=== PATIENT | male | born 1980 | race Caucasian/White ===

== ENCOUNTER 2017-03-16 14:12 | Inpatient (IN) | payer OTHER ==
[~2017-03-16] VITALS: Ht 165.1 cm; Wt 61.2 kg
--- NOTE | 2017-03-16 15:08 | RADIOLOGY REPORT ---
EXAMINATION: XR KNEE, RIGHT CLINICAL INFORMATION: Right knee pain. COMPARISON: There are no prior studies for comparison. TECHNIQUE: Four views of the right knee. FINDINGS: There is extensive soft tissue swelling within the cutaneous and subcutaneous region of the anterior aspect of the right knee along the superficial aspect of the anterior patellar margin. A small suprapatellar knee joint effusion is noted. No cortical defects are noted throughout the bony structures of the knee. No significant degenerative changes are present. IMPRESSION: Extensive soft tissue swelling in the anterior aspect of the right knee is superficial. A tiny suprapatellar knee joint effusion is present.
[2017-03-16 15:38] LABS: ABSOLUTE BASOPHIL COUNT 0 /CUMM (0.0-0.2); ABSOLUTE EOSINOPHIL COUNT 0.6 /CUMM (0.0-0.7); ABSOLUTE GRANULOCYTE CT 14.9 /CUMM (1.4-6.5); ABSOLUTE LYMPH COUNT 1.2 /CUMM (1.2-3.4); ABSOLUTE MONOCYTE COUNT 1.4 /CUMM (0.10-0.60); BASOPHIL % 0.2 % (0.0-2.0); EOSINOPHIL % 3.4 % (0-5); GRANULOCYTE % 82.3 % (42.2-75.2); HEMATOCRIT 42.4 % (42-52); MEAN CORPUSCULAR HGB 28.2 PG (27.0-31.0); MEAN CORPUSCULAR HGB CONC 33.2 G/DL (33.0-37.0); MEAN CORPUSCULAR VOLUME 84.8 FL (80.0-94.0); MEAN PLATELET VOLUME 7.4 FL (7.4-10.4); PLATELET COUNT 305 /CUMM (130-400); RBC DISTRIBUTION WIDTH 13.2 % (11.5-14.5); WHITE BLOOD CELL COUNT 18.1 /CUMM (4.8-10.8)
--- NOTE | 2017-03-16 17:28 | ED UPPER/LOWER EXTREMITY COMPL ---
See Addendum History of Present Illness General Chief Complaint: Lower Extremity Problems Stated Complaint: SIB MD FOR ?INFECTION IN R KNEE Source: patient Exam Limitations: no limitations Allergies Coded Allergies: NO KNOWN ALLERGIES (03/16/17) Triage Note: STATES HIS DOCTOR THINKS HE HAS AN INFECTION IN HIS RIGHT KNEE. PMD TRIED TO DRAIN IT YESTERDAY AND PLACED HIM ON ANTIBIOTICS AND TOLD HIM TO COME TO ED TODAY SINCE IT HAS DOUBLED IN SIZE Triage Nurses Notes Reviewed? yes Onset: Gradual Duration: day(s): (3) Timing: no prior history Severity: moderate Severity Numbers: 8 Pain/Injury Location: Right: Knee. Method of Injury: unknown Modifying Factors: Improves With: immobilization. Worsens With: movement. HPI: Patient is a 36-year-old male presenting to the emergency Department chief complaint of right knee pain, swelling and redness worsening over the past 3 days. Denies any injury. Positive tactile fevers and chills. No nausea or vomiting. He saw his opal polisher yesterday he tried to tap his right knee and couldn't get anything out. The patient reports that his knee became doubled the size today and the redness spread. Has been using [id number] Tylenol without relief. No history of similar symptoms. Patient reports that he had an ingrown hair on the right knee but THAT WAS about a week or 2 WEEKS ago. (Noreen العراقي) Vital Signs & Intake/Output Vital Signs & Intake/Output Vital Signs Date Time Temp Pulse Resp B/P B/P Pulse O2 O2 Flow FiO2 Mean Ox Delivery Rate 03/16 1831 98.4 71 18 111/60 98 Room Air 03/16 1418 98.7 100 20 122/78 100 Room Air (Carlene HARDING,Alex Meredith) Past History Travel History Traveled to [place] past 21 day No Medical History Any Pertinent Medical History? see below for history Musculoskeletal: PSORIATIC ARTHRITIS Surgical History Surgical History: non-contributory Psychosocial History What is your primary language Azerbaijani Tobacco Use: Quit >30 days ago ETOH Use: denies use Illicit Drug Use: denies illicit drug use Family History Hx Contributory? No (Noreen العراقي) Review of Systems Review of Systems Constitutional: Reports: see HPI, chills, fever. Comments Review of systems: See HPI, All other systems negative. Constitutional, no weight loss HEENT: No visual changes no sore throat no congestion Cardiovascular: No chest pain ,palpitation , orthopnea or ankle swelling Skin, no jaundice Respiratory: No dyspnea cough sputum or hemoptysis GI: No nausea no vomiting : No dysuria No hematuria Muscle skeletal: no back pain, no neck pain, Neurologic: No numbness no confusion Psych: No stress anxiety or depression,. Heme/endocrine: No bruising no bleeding no polyuria or polydipsia Immunology: No splenectomy or history of AIDS (Noreen العراقي) Physical Exam Physical Exam General Appearance: well developed/nourished, no apparent distress, alert, awake , comfortable Comments: Well-developed well-nourished person in no acute distress HEENT: Atraumatic, normocephalic Neck: Normal inspection Back: Nontender Cardiovascular: Regular rate and rhythms no murmurs rubs or gallops, normal JVP Respiratory: No respiratory distress.breath sounds clear to auscultation bilaterally Extremity: Moderate edema noted over the right patella, full range of motion with some discomfort of the right knee. No calf tenderness to palpation bilaterally. Pedal pulses are 2+ bilaterally. Tender to palpation along the medial and lateral aspect of the right patella. Negative ballottement test. Neuro: Alert oriented x3, motor sensory normal Skin: Moderate erythema, blanchable noted of the right patella approximately 10 cm x 10 cm, very warm to palpation. Nonfluctuant. Psych: Mood and affect is normal, memory and judgment is normal. (Noreen العراقي) Progress Differential Diagnosis: cellulitis, contusion, dislocation, gout, septic arthritis, sprain, tendon injury Diagnostic Imaging: Viewed by Me: Radiology Read. Discussed w/RAD: Radiology Read. Radiology Impression: ATIENT: KRZYSZTOF SOSAGERMÁN III PRESENT AGE: 36 PATIENT ACCOUNT NO: [id number] : 78 LOCATION: [facility] ORDERING PHYSICIAN: John STONE SERVICE DATE: 03/16/17 EXAM TYPE: RAD - XRY-KNEE COMPLETE RIGHT EXAMINATION: XR KNEE, RIGHT CLINICAL INFORMATION: Right knee pain. COMPARISON: There are no prior studies for comparison. TECHNIQUE: Four views of the right knee. FINDINGS: There is extensive soft tissue swelling within the cutaneous and subcutaneous region of the anterior aspect of the right knee along the superficial aspect of the anterior patellar margin. A small suprapatellar knee joint effusion is noted. No cortical defects are noted throughout the bony structures of the knee. No significant degenerative changes are present. IMPRESSION: Extensive soft tissue swelling in the anterior aspect of the right knee is superficial. A tiny suprapatellar knee joint effusion is present. DICTATED BY: Kerry Cardoso MD DATE/TIME DICTATED: 03/16/171502 WATER TAXI CAPTAIN:SYED DATE/TIME TRANSCRIBED:03/16/171502 CONFIDENTIAL, DO NOT COPY WITHOUT APPROPRIATE AUTHORIZATION. <Electronically signed in Other Vendor System> SIGNED BY: Kerry Cardoso MD 03/16/17 1505 (Noreen العراقي) Plan of Care: Orders Procedure Date/time Status Regular Diet 03/17 B Active Patient Data 03/16 1840 Active Misc Message 03/16 183 Active ED Holding Orders 03/16 183 Active Admit to inpatient 03/16 1835 Active Vital Signs 03/16 1835 Active Code Status 03/16 1835 Active BLOOD CULTURE 03/16 1739 Active Add-on Test (ER Only) 03/16 1724 Active WESTERGREN SED RATE 03/16 1528 Complete C-REACTIVE PROTEIN 03/16 1528 Complete COMPREHENSIVE METABOLIC PANEL 03/16 1429 Complete CBC WITHOUT DIFFERENTIAL 03/16 1429 Complete Current Medications Sig/Ludivina Start time Last Medication Dose Stop Time Status Admin Morphine Sulfate 4 MG ONCE ONE 03/16 1830 UNVr 03/16 (Morphine) 03/16 1831 1837 Sodium Chloride 1,000 ML BOLUS ONE 03/16 1745 AC 03/16 (Normal Saline 0.9%) 03/16 1944 1751 Laboratory Tests 03/16/17 1528: Anion Gap 12, Estimated GFR > 60, BUN/Creatinine Ratio 21.3, Glucose 101 H, Calcium 9.2, Total Bilirubin 1.4 H, AST 18, ALT 32, Alkaline Phosphatase 64, C- Reactive Prot, Quant 4.9 H, Total Protein 6.9, Albumin 3.9, Globulin 3.0, Albumin/Globulin Ratio 1.3, CBC w Diff MAN DIFF ORDERED, RBC 5.00, MCV 84.8, MCH 28.2, RDW 13.2, MPV 7.4, Gran % 82.3 H, Lymphocytes % 6.4 L, Monocytes % 7.7, Eosinophils % 3.4, Basophils % 0.2, Absolute Granulocytes 14.9 H, Absolute Lymphocytes 1.2, Absolute Monocytes 1.4 H, Absolute Eosinophils 0.6, Absolute Basophils 0, Platelet Estimate VERIFIED BY SMEAR, Normocytic RBCs VERIFIED, Normochromic RBCs VERIFIED, PUBS MCHC 33.2, ESR Westergren 23 H Microbiology 03/16 181 BLOOD: Blood Culture - RECD 03/16 1803 BLOOD: Blood Culture - RECD Comments: 03/16/2017 6:32:35 PM I discussed this patient's case with the hospitalist. (Carlene HARDING,Alex Meredith) Departure Departure Time of Disposition: 1847 Disposition: STILL A PATIENT Condition: Stable Clinical Impression Primary Impression: Cellulitis Qualifiers: Site of cellulitis: extremity Site of cellulitis of extremity: lower extremity Laterality: right Qualified Code: L03.115 - Cellulitis of right lower limb Referrals: Alex Rdz MD (PCP/Family) Departure Forms: Customer Survey General Discharge Information Admission Note Spoke With: Makenna Spear MD Documentation of Exam: Documentation of any treatments & extenuating circumstances including Concerns Regarding Discharge (functional status, medication knowledge or non-compliance, living conditions, etc.) that warrant an admission rather than observation: Patient requiring IV antibiotics, may need orthopedic consultation, IV pain medication and anti-inflammatories, discharge at this time is likely harmful secondary to patient being on by mouth antibiotics and symptoms worsening. TrREND white count. (Noreen العراقي) PA/PLASTICS FABRICATION SUPERVISOR Co-Sign Statement Statement: ED Attending supervision documentation- [x] I saw and evaluated the patient. I have also reviewed all the pertinent lab results and diagnostic results. I agree with the findings and the plan of care as documented in the PA's/PLASTICS FABRICATION SUPERVISOR's documentation. Patient presented for evaluation of worsening redness and swelling of the right knee that began gradually over the past 48 hours. Physical examination reveals redness and swelling over the anterolateral aspect of the right knee. [] I have reviewed the ED Record and agree with the PA's/PLASTICS FABRICATION SUPERVISOR's documentation. [] Additions or exceptions (if any) to the PAs/PLASTICS FABRICATION SUPERVISOR's note and plan are summarized below: [] (Carlene HARDING,Alex Meredith)
--- NOTE | 2017-03-16 20:00 | History & Physical ---
Tay HARDING,Jossie 03/16/171955: General Information and HPI MD Statement: I have seen and personally examined NGUYỄN SOSA III and documented this H&P. The patient is a 36 year old M who presented with a patient stated chief complaint of [R knee pain]. Source of Information: patient Exam Limitations: no limitations History of Present Illness: Patient is 36-year-old male with past medical history of psoriatic arthritis diagnosed 15 years ago. He presented to [facility] ED on 03/16 with complaint of right knee pain. The patient was in usual state of health until 2 days ago when he started experiencing pain in his right knee. Patient visited his consumer attorney (Dr. Rodolfo Ramirez at [facility]) who tried to tap joint yesterday. He was not able to draw any fluid out. Patient was prescribed Augmentin after that he has taken 3 pills since yesterday. Patient says that ever since then has joint has worsened in swelling and has become doubled in size. He reports spreading erythema and tenderness. His range of motion is restricted secondary to the pain. On review of system patient reports feeling warm no chills. He reports tenderness and stiffness in his small joints of fingers early in the morning. He denies any trauma to the knee. Denies any tick bite. He is sexually active with only 1 partner for the past 3 years. Denies any urinary symptoms or any ophthalmological symptoms. No history of STDs. Allergies/Medications Allergies: Coded Allergies: NO KNOWN ALLERGIES (03/16/17) Past History Travel History Traveled to [place] past 21 day No Medical History Musculoskeletal: PSORIATIC ARTHRITIS Surgical History Surgical History: cortisol inj R shoulder Past Family/Social History Psychosocial History Where do you live? Home Who Do You Live With? child, girlfriend Services at Home: None Primary Language: Maltese Smoking Status: Former Smoker ETOH Use: denies use Illicit Drug Use: denies illicit drug use Functional Ability ADLs Independent: dressing, eating, toileting, bathing. Ambulation: independent Sexual History Sexually Active Yes # of partners 1 Employment History Employment Employed Profession/[employer] Review of Systems Review of Systems Constitutional: Reports: fever. Denies: chills, weakness. EENTM: Denies: blurred vision, double vision, visual changes, eye pain, eye drainage, eye tearing. Cardiovascular: Reports: no symptoms. Respiratory: Reports: no symptoms. GI: Reports: no symptoms. Genitourinary: Denies: discharge, dysuria, frequency, hematuria, hesitation, nocturia, pain, urgency. Musculoskeletal: Reports: joint pain, joint swelling. Skin: Reports: no symptoms. Exam & Diagnostic Data Last 24 Hrs of Vital Signs/I&O Vital Signs Date Time Temp Pulse Resp B/P B/P Pulse O2 O2 Flow FiO2 Mean Ox Delivery Rate 03/16 2040 97.5 69 18 114/57 96 Room Air 03/16 1831 98.4 71 18 111/60 98 Room Air 03/16 1418 98.7 100 20 122/78 100 Room Air Intake & Output 03/16 1600 03/16 0800 03/16 0000 Intake Total Output Total Balance Patient 135 lb Weight Weight Reported by Patient Measurement Method Physical Exam General Appearance Alert, Oriented X3, Cooperative, No Acute Distress Skin No Rashes, No Breakdown HEENT Atraumatic, PERRLA, Mucous Membr. moist/pink Neck Supple Lymphatic Cervical nl Cardiovascular Regular Rate, Normal S1, Normal S2, No Murmurs Lungs Clear to Auscultation, Normal Air Movement Abdomen Normal Bowel Sounds, Soft, No Tenderness, No Hepatospenomegaly, No Masses Neurological Normal Speech, Normal Tone Extremities R knee joint tender to touch most tender at later side and patella edematous, erythematous and warm. Ristricted ROM 2/2 to pain Vascular Normal Pulses Body Front and Back (Adult) 1) Diagnostic Data Other Results R knee xray IMPRESSION: Extensive soft tissue swelling in the anterior aspect of the right knee is superficial. A tiny suprapatellar knee joint effusion is present. Assessment/Plan Assessment: Patient is 36-year-old male with past medical history of psoriatic arthritis diagnosed 15 years ago. He presented to [facility] ED on 03/16 with complaint of right knee pain. -VS HR 100 Rest WNL -Pertinent labs WBC count 18.1 ESR 23 CRP 4.9 total bilirubin 1.4 -In ED patient received Tylenol 4 mg of morphine ketorolac and 1 L of normal saline and blood cultures were grown. The patient is being admitted to general medicine floor and is being treated and evaluated for following conditions #Bursitis vs cellulitis The patient is presenting with acute onset right knee pain, erythema, edema and tenderness with full range of motion, motion is restricted secondary to pain. Iatrogenic Septic arthritis is also out of the differentials less likely considering tiny suprapatellar effusion. More consistent with bursitis. SIRS criteria positive for elevated heart rate and increased WBC count but, EDC the patient does not appear to be septic. He scores 0 on qSOFA, making him low risk for poor outcome. -Monitor fever and WBC curve -Cefazolin every 8h -Pain management -patient is taking oxycodone 10 mg Q6 and morphine sulfate ER 15mg once daily prescribed by his consumer attorney. We will check CTPM to confirm -Orthopedic consult in the morning #History of psoriatic arthritis: Continue Leflunomide Patient is on Humira every 2 weeks #FC/due to prophylaxis with Lovenox/regular diet As Ranked By This Provider Problem List: 1. Bursitis Core Measures/Misc (11/08) Acute Coronary Syndrome ACS Diagnosis: No Congestive Heart Failure Congestive Heart Failure Diagnosis No Cerebrovascular Accident CVA/TIA Diagnosis: No VTE (View Protocol) VTE Risk Factors Immobility No Mechanical VTE Prophylaxis d/t N/A MechProphylax Ordered No VTE Pharm Prophylaxis d/t NA PharmProphylax ordered Sepsis (View protocol) Sepsis Present: No Thien Mills 03/16/176: General Information and HPI Allergies/Medications Home Med list Adalimumab (Humira Pen) 40 MG/0.8 ML PEN.IJ.KIT 1 SYR SC Q2W PSORIASIS ( Reported) Leflunomide (Arava) 20 MG TABLET 1 TAB PO DAILY PSORIASIS (Reported) Morphine Sulfate (Morphine Sulfate ER) 15 MG TABLET.ER 1 TAB PO DAILY NEEDED PRN JOINT PAINS (Reported) Oxycodone HCl 10 MG TABLET 1 TAB PO 4XDP PRN JOINT PAINS (Reported) Pantoprazole Sodium 40 MG TABLET.DR 1 TAB PO DAILY PRN GERD (Reported) Resident Review Statement Resident Statement: discussed with kinesiology internship Other Findings: 36-year-old man with past medical history of psoriatic arthritis on Humira and Leflunomide follows consumer attorney at [facility]. He presented to [facility] ER with complaint of right knee swelling and redness and pain that started 2 days ago. He saw his consumer attorney yesterday who tried to tap his right knee but could not get any synovial fluid. He prescribed him Augmentin for possible knee infection. He reports having worsening of knee pain and thinks that swelling has increased. Range of motion is restricted due to knee pain. He reports tactile fevers. Other ROS negative. Describes no trauma to his right knee. He denies pain, redness or swelling of any other joint of his body. No rash. No history of tick bite. He is sexually active with 1 partner for last 8 years. Denies having STDs in past. Denies smoking, alcohol or illicit drug use. Upon arrival his temperature was 98.7, pulse 100, respiratory rate 20, blood pressure 122/78 and oxygen saturation 100% on room air. Pertinent physical exam findings: Right knee is erythematous and swollen. Warm and tender to touch. No skin breakdown noted. Range of motion of right knee is normal but restricted due to pain. Pertinent labs: WBC count 18.1, T bili 1.4, ESR 23 and CRP 4.9 Right knee x-ray showed extensive soft tissue swelling in the anterior aspect of right knee. Tiny suprapatellar knee joint effusion. In ER he was given Toradol, 1 L normal saline bolus, morphine and Tylenol. Assessment and plan 36-year-old man with past medical history of psoriatic arthritis. His right knee redness pain and swelling is likely due to superficial cellulitis vs bursitis. Sudden onset of pain also raises the possibility of Gout. No joint effusion was noted on x-ray. Septic Arthritis less likely. We will admit him on general medicine floor. Vitals every shift. We'll start him on cefazolin. Ortho consult in a.m. will check uric acid. Pain management. DVT prophylaxis. Full code Makenna Spear 03/16/17 2357: Attending MD Review Statement Attending Statement Attending MD Statement: examined this patient, discuss w/resident/PA/SOCIAL SERVICE LIAISON, agreed w/resident/PA/SOCIAL SERVICE LIAISON, reviewed EMR data (avail), reviewed images, amended to note Attending Assessment/Plan: CC: Right knee pain PMH: Psoriatic arthritis Patient came to ER for persistent right knee pain. Patient noticed to have pain and redness approximately 3 days back, which gradually worsened. He visited his consumer attorney who tried to aspirate the knee without success, prescribed pain medications and antibiotics. With 1 day of oral antibiotics his knee swelling was not getting better in fact it was getting worse, along with the redness and pain. Patient denies any fever or chills at home, no local trauma. He is unable to ambulate because of pain. Vitals: T max 98.7, pulse 100, RR 20, blood pressure 122/78, saturating well on room air. On exam: A O 3, cooperative, no acute distress, neck supple, JVD normal, no lymphadenopathy, mucosa moist, no focal neurological deficit, no dependent edema , no obvious skin rashes or inflammation CVS: S1-S2, RRR. RS: Clear to auscultate bilaterally. Abdomen: Soft, NT, ND, bowel sounds present. Right knee: Tenderness, swelling, redness on knee, ROM of knee intact, no effusion noted, pulses intact, no open wounds Labs: WBC 10.1, neutrophils 82% otherwise CBC, BMP, LFT unremarkable, CRP 4.9, ESR 23 X-ray right knee: Extensive soft tissue swelling in the anterior aspect of the right knee is superficial. A tiny suprapatellar knee joint effusion is present. 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 Patient underwent tapping of the right knee joint in his consumer attorney office outpatient without success. He is under treatment with antibiotics and pain medications for the same, but over last 1 day the symptoms were worsening so patient came to ER. Patient's range of motion of right knee is intact, no obvious effusion noted but there appears to be prepatellar septic bursitis with warmth, redness, increased temperature, leukocytosis. We will continue IV antibiotics and obtain orthopedic consult. + Right knee suspected prepatellar septic bursitis + History of psoriatic arthritis - Admit to general medicine - Adequate pain control - IV cefazolin - Orthopedic consult - DVT prophylaxis
[2017-03-16] MEDS ORDERED: MORPHINE SULFAT15 M3 PO (20:42)
[2017-03-16] MEDS ORDERED: HUMIRA PEN40 MG/0.8 SC (20:43)
[2017-03-16] MEDS ORDERED: OXYCODONE HCL10 M2 PO (20:43)
[2017-03-16] MEDS ORDERED: PANTOPRAZOLE SO40 M1 PO (20:44)
[2017-03-16] MEDS ORDERED: ARAVA20 M1 PO (20:44)
[2017-03-16 22:32] VITALS: BP 102/56
--- NOTE | 2017-03-16 23:59 | Admission Certification ---
Admission Certification Certification Statement - As attending physician, I certify that at the time of - admission, based on clinical presentation, severity of - symptoms, need for further diagnostic testing and - therapeutic interventions, and risk of adverse outcomes - without in-hospital treatment, in my clinical assessment, - this patient requires an acute hospital stay for a minimum - of two nights or longer. I have also considered psychsocial - factors such as support system, advanced age, financial - issues, cognitive issues, and failed out-patient treatments, - past re-admission history, safety of patient, and lack of - compliance as applicable. Specific rationale supporting this admission is: suspected septic bursitis
[2017-03-17 06:00] VITALS: BP 108/64
[2017-03-17 09:07] LABS: ABSOLUTE BASOPHIL COUNT 0 /CUMM (0.0-0.2); ABSOLUTE EOSINOPHIL COUNT 0.7 /CUMM (0.0-0.7); ABSOLUTE GRANULOCYTE CT 12.6 /CUMM (1.4-6.5); ABSOLUTE LYMPH COUNT 1.2 /CUMM (1.2-3.4); ABSOLUTE MONOCYTE COUNT 1.3 /CUMM (0.10-0.60); BASOPHIL % 0.1 % (0.0-2.0); EOSINOPHIL % 4.5 % (0-5); GRANULOCYTE % 79.9 % (42.2-75.2); MEAN CORPUSCULAR HGB 28.9 PG (27.0-31.0); MEAN CORPUSCULAR HGB CONC 34.1 G/DL (33.0-37.0); MEAN CORPUSCULAR VOLUME 84.7 FL (80.0-94.0); MEAN PLATELET VOLUME 7.9 FL (7.4-10.4); PLATELET COUNT 281 /CUMM (130-400); RBC DISTRIBUTION WIDTH 13.1 % (11.5-14.5); RED BLOOD CELL CT 4.34 /CUMM (4.70-6.10); WHITE BLOOD CELL COUNT 15.8 /CUMM (4.8-10.8)
[2017-03-17 09:28] LABS: HEMATOCRIT 36.8 % (42-52)
--- NOTE | 2017-03-17 09:49 | Cons- Orthopedic ---
General Information and HPI Consulting Request Date of Consult: 03/17/17 Requested By: Winston Barber MD History of Present Illness: 36 YR OLD MALE WITH RIGHT KNEE PAIN AND SWELLING. STATES HAD INGROWN HAIR ON RIGHT KNEE A FEW DAYS AGO. PATIENT IS ON BIOLOGICS MEDS FOR HIS PSORIATIC ARTHRITIS. PATIENT ALSO ON CHRONIC PAIN MEDS. X-RAYS OF KNEE SHOW PREPATELLAR EFFUSION. STATES HIS KNEE PAIN HAS INCREASED OVER HIS ADMISSION. NOW HAS WBC OF 15.3. PATIENT STATES WORKS ON KNEES ALL DAY. Allergies/Medications Allergies: Coded Allergies: NO KNOWN ALLERGIES (03/16/17) Home Med List: Adalimumab (Humira Pen) 40 MG/0.8 ML PEN.IJ.KIT 1 SYR SC Q2W PSORIASIS ( Reported) Leflunomide (Arava) 20 MG TABLET 1 TAB PO DAILY PSORIASIS (Reported) Morphine Sulfate (Morphine Sulfate ER) 15 MG TABLET.ER 1 TAB PO DAILY NEEDED PRN JOINT PAINS (Reported) Oxycodone HCl 10 MG TABLET 1 TAB PO 4XDP PRN JOINT PAINS (Reported) Pantoprazole Sodium 40 MG TABLET.DR 1 TAB PO DAILY PRN GERD (Reported) Past History Medical History Blood Transfusion Hx: No Neurological: NONE EENT: NONE Cardiovascular: NONE Respiratory: NONE Gastrointestinal: NONE Hepatic: NONE Renal: NONE Musculoskeletal: PSORIATIC ARTHRITIS Psychiatric: NONE Endocrine: NONE Blood Disorders: NONE Cancer(s): NONE 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 Home Who Do You Live With? child, girlfriend Services at Home: None Primary Language: Montenegrin Smoking Status: Former Smoker ETOH Use: denies use Illicit Drug Use: denies illicit drug use Functional Ability ADLs Independent: dressing, eating, toileting, bathing. Ambulation: independent Employment History Employment: Employed Profession/Employer: [employer] Review of Systems Review of Systems: SEE CHART Exam & Diagnostic Data Vital Signs and I&O Vital Signs Date Time Temp Pulse Resp B/P B/P Pulse O2 O2 Flow FiO2 Mean Ox Delivery Rate 03/17 0600 98.0 77 18 108/64 96 Room Air 03/16 2232 98.2 70 18 102/56 95 Room Air 03/16 2041 97.5 69 18 114/57 96 Room Air 03/16 1831 98.4 71 18 111/60 98 Room Air 03/16 1418 98.7 100 20 122/78 100 Room Air Intake & Output 03/17 1600 03/17 0800 03/17 0000 03/16 1600 03/16 0800 03/16 0000 Intake Total 200 300 Output Total Balance 200 300 Intake, Oral 200 300 Patient 135 lb 135 lb Weight Weight Reported by Patient Reported by Patient Measurement Method Physical Exam: Noe and serosanguineous. Problem chronic pain. Immunocompromise as VERY TENDER OVER RIGHT PREPATELLAR BURSA. + ERYTHEMA AND SWELLING OF PREPATELLAR BURSA WITH WARMTH. THERE IS SOME FLUCTUANCE OVER PREPATELLAR BURSA. SMALL AREA WHERE THERE WAS AN INGROWN HAIR. FULL ROM OF RIGHT KNEE NO EFFUSION OF RIGHT KNEE. NO INSTABILITY OF KNEE. X-RAYS SHOW PREPATELLAR SWELLING NO FRACTURE OR CALCIFICATIONS. AFTER PREPPING RIGHT KNEE TODAY THE PREPATELLAR BURSA WAS LANCED WITH AN 11 BLADE. SEROSANGUINOUS DRAINAGE WAS OBSERVED AND DRESSING WAS APPLIED. Assessment/Plan Assessment/Plan RIGHT KNEE SEPTIC PREPATELLAR BURSITIS -PATIENT SHOULD BE PLACED ON IV ABX AND I&D CONSULT -ICE TO RIGHT KNEE -PATIENT SHOULD BE PLACED ON HIS REGULAR PAIN MEDS AND SOMETHING FOR BREAK THROUGH PAIN -CHANGE DSG DAILY AND ALLOW BURSA TO DRAIN -F/U WITH ORTHO PRN Consult Acknowledgment - Thank you for your consult request.
--- NOTE | 2017-03-17 11:26 | PN- Housestaff ---
[facility]: Subjective Follow-up For: Septic prepatellar bursitis Subjective: No overnight events. Patient remained afebrile overnight. Seen and examined this morning. Patient denied any chest pain, short of breath, nausea, vomiting, abdominal pain, lightheadedness dysuria. He reported having pain in right knee 7/10. Patient wants to go home today. He said he can follow orthopedic as outpatient and he can manage his wound care. Review of Systems Constitutional: Reports: no symptoms. EENTM: Reports: no symptoms. Cardiovascular: Reports: no symptoms. Respiratory: Reports: no symptoms. Gastrointestinal: Reports: no symptoms. Genitourinary: Reports: no symptoms. Musculoskeletal: Reports: see HPI. Neurological/Psychological: Reports: no symptoms. Objective Last 24 Hrs of Vital Signs/I&O Vital Signs Date Time Temp Pulse Resp B/P B/P Pulse O2 O2 Flow FiO2 Mean Ox Delivery Rate 03/17 0600 98.0 77 18 108/64 96 Room Air 03/16 2232 98.2 70 18 102/56 95 Room Air 03/16 2041 97.5 69 18 114/57 96 Room Air 03/16 1831 98.4 71 18 111/60 98 Room Air 03/16 1418 98.7 100 20 122/78 100 Room Air Intake & Output 03/17 1600 03/17 0800 03/17 0000 Intake Total 200 300 Output Total Balance 200 300 Intake, Oral 200 300 Patient 135 lb Weight Weight Reported by Patient Measurement Method Physical Exam General Appearance: Alert, Oriented X3, Cooperative, No Acute Distress Skin Temp/Moisture Exam: Warm/Dry Sepsis Skin Exam (color): Normal for Ethnicity HEENT: Atraumatic, PERRLA, EOMI Neck: Supple Cardiovascular: Normal S1, Normal S2 Lungs: Clear to Auscultation Abdomen: Soft, No Tenderness Neurological: Normal Speech, Strength at 5/5 X4 Ext, Normal Tone, Sensation Intact Extremities: No Edema Assessment/Plan Assessment: 36-year-old man with past medical history of psoriatic arthritis on Humira and Leflunomide follows survey interviewer at [facility]. He presented to [facility] with complaint of right knee swelling and redness and pain that started 2 days ago. He saw his survey interviewer yesterday who tried to tap his right knee but could not get any synovial fluid. He prescribed him Augmentin for possible knee infection. He reports having worsening of knee pain and thinks that swelling has increased. Range of motion is restricted due to knee pain. We will admit the patient under medicine floor for bursitis treatment. Septic prepatellar bursitis status post I&D: -We will continue IV cefazolin. -Pain medication -Elevation of the leg to decrease swelling -We'll follow the orthopedic recommendation. Incision and drainage is done and they kept it open for open drainage. -We will get the culture. History of psoriatic arthritis: -Continue leflunomide and Humira. DVT prophylaxis: Mechanical and heparin CODE STATUS: Full code Problem List: 1. Bursitis Pain Ratin Pain Location: right knee Pain Goal: Pain 4 or less Pain Plan: oxycodone for moderate pain Tomorrow's Labs & Rationales: cbc/bep Johnathan Negro MD 03/17/17 1702: Attending MD Review Statement Attending Statement Attending MD Statement: examined this patient, discuss w/resident/PA/ENDLESS TRACK VEHICLE MECHANIC, agreed w/resident/PA/ENDLESS TRACK VEHICLE MECHANIC, reviewed EMR data (avail), discussed with case mgmt, amended to note Attending Assessment/Plan: The patient was seen and discussed with house staff. S/P drainage of serosanguineous fluid from pre-patellar bursitis by orthopedic PA. No culture was done. The patient is afebrile and wishes to be discharged. He is followed by his PCP and Traffic Analysis Technician in [place]. [place] to discharge today on po Augmentin with close follow-up as above. The patient was advised to return if any fever or worsening of symptoms. Note- PA did not observe any purulence at time of drainage (only serosanguineous fluid). His last Ab treatment was 1 week ago ( receives q2 weeks).
[2017-03-17] MEDS ORDERED: AUGMENTIN 875-1 EACH PO (13:25)
--- NOTE | 2017-03-17 13:33 | Patient Discharge Instructions ---
Discharge Instructions General Discharge Information You were seen/treated for: Septic prepatellar bursitis Watch for these problems: Increase in pain, increasing redness of right knee, fever, chills, increase in discharged from right knee and lightheadedness. If you experience any of these symptoms come to ED or call your primary care physician. Special Instructions: Please follow up with your primary care physician in one week. Follow-up your association executive in 1 week. If you have fever or increasing swelling or increasing redness and then come back to ED. Take your medications regularly. Dry dressing every day kyleigh wrap. Diet Recommended Diet: Regular Activity Activity Self Limited: Yes Acute Coronary Syndrome Inclusion Criteria At DC or during hospital stay patient has or had the following: ACS DIAGNOSIS No Discharge Core Measures Meds if any: Prescribed or Continued at Discharge Meds if any: NOT Prescribed or Continued at Discharge Congestive Heart Failure Inclusion Criteria At DC or during hospital stay patient has or had the following: CHF DIAGNOSIS No Discharge Core Measures Meds if any: Prescribed or Continued at Discharge Meds if any: NOT Prescribed or Continued at Discharge Cerebrovascular accident Inclusion Criteria At DC or during hospital stay patient has or had the following: CVA/TIA Diagnosis No Discharge Core Measures Meds if any: Prescribed or Continued at Discharge Meds if any: NOT Prescribed or Continued at Discharge Venous thromboembolism Inclusion Criteria VTE Diagnosis No VTE Type NONE VTE Confirmed by (Test) NONE Discharge Core Measures - Per Current guidelines, there needs to be overlap - treatment for the first 5 days of Warfarin therapy. - If discharged on Warfarin prior to 5 days of - overlap therapy, the patient will need to be - assessed for post discharge needs including - *Post discharge parental anticoagulation - *Warfarin and/or parental anticoagulation education - *Follow up date to check INR post discharge At least 5 days overlap therapy as Inpatient No Meds if any: Prescribed or Continued at Discharge Note: Overlap Therapy is Warfarin and Anticoagulant Meds if any: NOT Prescribed or Continued at Discharge
--- NOTE | 2017-03-17 13:34 | Discharge Summary ---
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 He presented to [facility] with complaint of right knee swelling and redness and pain that started 2 days ago. He saw his supervisor stage carpentry yesterday who tried to tap his right knee but could not get any synovial fluid. He prescribed him Augmentin for possible knee infection. He reports having worsening of knee pain and thinks that swelling has increased. Range of motion is restricted due to knee pain. ED course: vitals: Temperature 98.7, pulse 100, respiratory rate 20, BP 122/78, oxygen saturation 98% on room air. Labs: WBC count 18.1, hemoglobin 14.1, hematocrit 42.4, platelet count 305, sodium 141, potassium 4.3, BUN 17, creatinine 0.8, glucose 101, BUNs/creatinine ratio 21.3, total bilirubin 1.4, AST 18, ALT 32, alkaline phosphatase 64. Septic prepatellar bursitis status post I&D: Patient was admitted with right knee swelling and redness and pain due to septic prepatellar bursitis. Blood cultures were obtained and patient was started on IV cefazolin. IV pain medication was given to control the pain. Orthopedic consultation was obtained. Incision and drainage was done and the wound was kept open for open drainage. Dressing was done and patient was instructed for leg elevation. Patient insisted to go home because he was saying that he can take care of his wound and take medications at home. Patient was discharged and instructed to take Augmentin for 10 days with daily dressing. Patient was also instructed to follow his primary care physician and supervisor stage carpentry within a week. Patient was also instructed that if he experience fever, increase in swelling and increasing pain in right knee come back to ED. History of psoriatic arthritis: We continue leflunomide and Humira. DVT prophylaxis: Mechanical and heparin CODE STATUS: Full code Allergies: Coded Allergies: NO KNOWN ALLERGIES (03/16/17) Disposition Summary Disposition Principal Diagnosis: Right Septic prepatellar bursitis Additional Diagnosis: Psoriatic arthritis Discharge Disposition: home or self care Discharge Instructions General Discharge Information Code Status: Full Code Patient's Diet: Regular diet Patient's Activity: Self-limited Follow-Up Instructions/Appts: Follow-up with your primary care physician in one week. Follow-up with your rheumatology in 1 week. If you have increasing pain in her right knee, fever, increase in swelling and increasing redness and then come back to ED. Daily dry dressing with wrap. Medications at Discharge Discharge Medications: Continue taking these medications: Morphine Sulfate (Morphine Sulfate ER) 15 MG TABLET.ER 1 Tablet ORAL DAILY NEEDED as needed for JOINT PAINS Qty = 30 Comments: LAST TAKEN: 03/17/17 @ 10 AM Adalimumab (Humira Pen) 40 MG/0.8 ML PEN.IJ.KIT 1 Syringe Inject into fatty tissue EVERY 2 WEEKS Qty = 2 Comments: NOT TAKEN IN HOSPITAL Oxycodone HCl (Oxycodone HCl) 10 MG TABLET 1 Tablet ORAL 4 times daily as needed as needed for JOINT PAINS Qty = 120 Comments: LAST TAKEN: 03/17/17 @ 10 AM Pantoprazole Sodium (Pantoprazole Sodium) 40 MG TABLET.DR 1 Tablet ORAL DAILY as needed for GERD Qty = 30 Comments: NOT TAKEN IN HOSPITAL Leflunomide (Arava) 20 MG TABLET 1 Tablet ORAL DAILY Qty = 30 Comments: LAST TAKEN: 03/17/17 @ 10 AM Start taking the following new medications: Amoxicillin/Potassium Clav (Augmentin 875-125 Tablet) 875 MG-125 MG TABLET 1 Tablet ORAL TWICE DAILY Qty = 20 No Refills Copies To: Kajal HARDING,Alex
== END 2017-03-17 17:20 | DRG 558 ==
LOC: ERH 14:12 → 2NA 18:35 → ERHI 18:35 → ENRESERV 20:10 → ENTRNSPT 20:39 → 2NA 21:00 → CMPTRNSPT 21:12 → 2NA 03-17 08:09 → ENPENDDIS 03-17 14:08 → 2NA 03-17 17:20
PROVIDERS: Internal Medicine; Physician Assistant Medical
DX: M70.41 Prepatellar bursitis, right knee (principal); L40.50 Arthropathic psoriasis, unspecified; Z87.891 Personal history of nicotine dependence
CPT/HCPCS: 2NASP; 36415; 73562-RT; 87040; J0690; J1650; J1885